=== PATIENT | male | born 1940 | race Two or more races ===

== ENCOUNTER 2020-07-31 18:17 | Emergency (ER) | payer MEDICARE, MEDICAID ==
[~2020-07-31] VITALS: Ht 165.1 cm; Wt 83.9 kg
[2020-07-31] MEDS ORDERED: DEXAMETHASONE SOD PHOSPHATE 10 MG/ML VIAL IV ONE (20:00)
[2020-07-31] MEDS ORDERED: AZITHROMYCIN 500 MG in IV D5W 250 ML IV ONE (20:00)
[2020-07-31] MEDS ORDERED: CEFTRIAXONE 1GM BAG (ER ONLY) 1 GM/50 ML PIGGYBACK IV ONE (20:00)
[2020-07-31] MEDS ORDERED: IV NS 0.9% 500 ML BAG IV ONE (20:00)
[2020-07-31] MEDS ORDERED: CEFTRIAXONE 1GM BAG (ER ONLY) 50 ML IV ONE (20:04)
[2020-07-31] MEDS ORDERED: AZITHROMYCIN 500 MG VIAL ONE (20:05)
[2020-07-31] MEDS ORDERED: DEXAMETHASONE SOD PHOSPHATE 10 MG/ML VIAL ONE (20:05)
--- NOTE | 2020-07-31 20:05 | NUR ---
PATIENT CAME TO THE ER BED 5 C/O RESPIRATORY DISTRESS. PATIENT APPEARS TO BE UNEASY BREATHING W/ LABOR ON NON-REBREATHER MASK AT 85%. PATIENT IS AAOX4. CONNECTED TO THE EDUCATION TRAINER.
[2020-07-31 20:08] LABS: BASOPHILS # (AUTO) 0.1 /CMM (0.0-0.2); BASOPHILS % (AUTO) 0.1 % (0.0-2.0); HEMATOCRIT 31 % (39-51); HEMOGLOBIN 9.9 g/dL (13.5-17.5); LYMPHOCYTES # (AUTO) 47.7 /CMM (0.8-4.8); LYMPHOCYTES % (AUTO) 97.1 % (20.0-44.0); MEAN CORPUSCULAR HGB CONC 32 g/dl (31.0-36.0); MEAN CORPUSCULAR VOLUME 105 fL (80-96); MONOCYTES # (AUTO) 0.1 /CMM (0.1-1.30); MONOCYTES % (AUTO) 0.2 % (2.0-12.0); NEUTROPHILS # (AUTO) 1.3 /CMM (1.8-8.9); NEUTROPHILS % (AUTO) 2.6 % (43.0-81.0); PLATELET COUNT (AUTO) 178 /CMM (150-450); RED BLOOD CELL COUNT(AUTO) 2.94 MIL/uL (4.5-6.0)
--- NOTE | 2020-07-31 20:08 | NUR ---
PT PLACED ON HI FLOW 40L , FIO2 100%. ABG AFTER 1HR
[2020-07-31 20:16] LABS: CALCIUM, SERUM 8.1 mg/dL (8.5-10.1); CARBON DIOXIDE 21 mmol/L (21-32); CHLORIDE 95 mmol/L (98-107); CREATININE 3.2 mg/dL (0.6-1.3); GLUCOSE 224 mg/dL (74-106); POTASSIUM 4.1 mmol/L (3.5-5.1); SODIUM SERUM 131 mmol/L (136-145); UREA NITROGEN, BLOOD 64 mg/dL (7-18)
[2020-07-31 20:28] LABS: WHITE BLOOD COUNT (AUTO) 49.2 K/uL (4.3-11.0)
[2020-07-31 20:29] LABS: ALANINE AMINOTRANSFERASE 19 U/L (12-78); ALBUMIN 2.4 g/dL (3.4-5.0); ALKALINE PHOSPHATASE 44 U/L (46-116); ASPARTATE AMINOTRANSFERASE 41 U/L (15-37); B-TYPE NATRIURETIC PEPTIDE 23017 PG/ML (0-125); BILIRUBIN,DIRECT 1.2 mg/dL (0.0-0.2); BILIRUBIN,TOTAL 1.6 mg/dL (0.2-1.0); TOTAL PROTEIN, SERUM 7.3 g/dL (6.4-8.2)
[2020-07-31 20:48] LABS: BILIRUBIN,URINE MODERATE (NEGATIVE); COLOR,URINE AMBER (YELLOW); LEUKOCYTE ESTERASE ,URINE Negative (NEGATIVE); NITRITE, URINE Negative (NEGATIVE); PROTEIN,URINE 100 mg/dl (NEGATIVE); UGLUCOSE Negative (NEGATIVE)
[2020-07-31 20:50] LABS: BACTERIA,URINE Many /HPF (None Seen); CALCIUM OXALATE CRYSTALS,UR Rare /HPF (None Seen); RBC,URINE 0-2 /HPF (0-2); SQUAMOUS EPITHELIAL CELL,UR Few /HPF (None Seen)
[2020-07-31] MEDS ORDERED: EPINEPHRINE (1:10,000) SYRINGE 1 MG/10 ML DISP.SYRIN ONE ×2 (21:00→22:54)
[2020-07-31] MEDS ORDERED: SODIUM BICARBONATE SYR 50 MEQ/50 ML DISP.SYRIN ONE (21:00)
[2020-07-31] MEDS ORDERED: ATROPINE SULFATE 1 MG/10 ML DISP.SYRIN ONE (21:00)
[2020-07-31 21:03] LABS: D-DIMER 16.83 mg/L(FEU (0.17-0.50)
--- NOTE | 2020-07-31 21:13 | NUR ---
CALL DAUGHTER FOR ANY UPDATES
--- NOTE | 2020-07-31 21:38 | NUR ---
PATIENT PULLED OUT IV LINE. IV SITE PLACED WITH 4X4 GAUZE. NO BLEEDING NOTED.
[2020-07-31 21:55] LABS: FERRITIN 798 ng/mL (8-388)
[2020-07-31 22:12] LABS: CREATINE KINASE, TOTAL 186 U/L (39-308)
[2020-07-31] MEDS ORDERED: FUROSEMIDE 40 MG/4 ML VIAL ONE (22:18)
--- NOTE | 2020-07-31 22:18 | NUR ---
ER MD TALKING TO PT FAMILY REGARDING PT CONDITION AND ADMISSION TO ICU.
--- NOTE | 2020-07-31 22:20 | NUR ---
SEE CODE SHEET
[2020-07-31] MEDS ORDERED: FUROSEMIDE 40 MG/4 ML VIAL IV SCH (22:30)
[2020-07-31] MEDS ORDERED: VANCOMYCIN 1.25 GM in IV D5W 250 ML IV ONE (22:30)
[2020-07-31] MEDS ORDERED: PIPERACILLIN /TAZOBACTAM 2.25 G in IV D5W 50 ML IV SCH (22:30)
--- NOTE | 2020-07-31 22:30 | NUR ---
ER CALLED FOR CODE IN BED 5. PERFORMED CPR. PT INTUBATED WITH ETT 7.0 @ 24 CM AT THE LIP. CO2 DETECTOR COLOR CHANGED. PLACED PT ON VENT WITH THE SETTINGS OF AC 18, 500, 100%, PEEP 5. VENT PLUGGED INTO RED OUTLET. VENT ALARMS ON AND AUDIBLE. SX DONE. WILL CONTINUE TO MONITOR T/O SHIFT.
[2020-07-31] MEDS ORDERED: NOREPINEPHRINE 4 MG/4 ML AMPUL IV ONE (22:44)
--- NOTE | 2020-07-31 22:45 | NUR ---
lab called regarding covid positive result.
[2020-07-31 22:47] VITALS: BP 67/17
--- NOTE | 2020-07-31 22:47 | NUR ---
SEE CODE SHEET
--- NOTE | 2020-07-31 23:07 | NUR ---
SPOKE WITH CASH FROM [employer], PATIENT IS NOT A [employer] CASE.
--- NOTE | 2020-07-31 23:10 | NUR ---
SPOKE WITH [employer], FAV[facility], CASE #[id number]
--- NOTE | 2020-07-31 23:21 | NUR ---
[employer] talking to pt daughter regarding pt.
[2020-08-03 16:25] LABS: LYMPHOCYTES % (MANUAL) 99 % (16-48)
[2020-08-03 16:26] LABS: NEUTROPHILS % (MANUAL) 1 (42-76)
== END 2020-07-31 22:55 | disposition expired ==
LOC: ER 18:29 → UNDOADMIN 21:57 → ICU 21:57 → ER 22:55
DX: A41.89 Other specified sepsis (principal); U07.1 COVID-19; J12.89 Other viral pneumonia; R65.20 Severe sepsis without septic shock; J96.01 Acute respiratory failure with hypoxia; N17.0 Acute kidney failure with tubular necrosis; R22.2 Localized swelling, mass and lump, trunk; E87.1 Hypo-osmolality and hyponatremia; D53.1 Other megaloblastic anemias, not elsewhere classified; E44.0 Moderate protein-calorie malnutrition; Z68.30 Body mass index [BMI] 30.0-30.9, adult; E66.9 Obesity, unspecified; R74.01 Elevation of levels of liver transaminase levels; D68.59 Other primary thrombophilia; R00.0 Tachycardia, unspecified
CPT/HCPCS: 31500; 36415; 36600; 51702; 71045 ×2; 80048; 80076; 81001; 82550; 82728; 82803; 83605; 83615; 83880; 84484; 85007; 85025; 85378; 85730; 86140; 87040 ×2; 87077; 87081; 87086; 87186; 87426; 92950; 93005; 93308; 96365; 96367; 96375; 99291; J0171; J0456; J0461; J0696; J1100; J1940; J2543; J3370; J3490; J7040; J7060; C9803; G0378; U0003